=== PATIENT | male | born 1995 | race Caucasian/White ===

== ENCOUNTER 2016-06-23 23:07 | Emergency (ER) | payer SELFPAY ==
[~2016-06-23] VITALS: Ht 172.7 cm; Wt 64.5 kg
[~2016-06-23 23:07] MED LIST: ACET325T33 PO; IBUP800T25 PO
[2016-06-23 23:10] VITALS: Ht 172.7 cm; Wt 64.5 kg
--- NOTE | 2016-06-24 00:23 | ERD ---
ER Documentation Chief Complaint Date/Time DATE: 06/24/16 TIME: 00:20 Chief Complaint rashes/bumps around testicles, pelvic pain HPI 21 year old male comes in with bilateral scrotal swelling after intercourse. He states that he feels as if there is swelling to both of his scrotum only noted when he has had intercourse. No penile pain, no scrotal pain, no discharge. No dysuria, urgency or frequency. ROS All systems reviewed and are negative except as per history of present illness. Medications Home Meds Active Scripts Acetaminophen* (Tylenol*) 325 Mg Tablet, 2 TAB PO Q8 Y for PAIN AND OR ELEVATED TEMP, #20 TAB Prov:SHE SANTANA DO 12/25/15 Ibuprofen* (Motrin*) 800 Mg Tab, 800 MG PO Q6H Y for PAIN AND OR ELEVATED TEMP, #30 TAB Prov:SHE SANTANA DO 12/25/15 Allergies Allergies: Coded Allergies: No Known Allergy (Unverified , 06/23/16) Physical Exam Vitals Vital Signs Date Time Temp Pulse Resp B/P Pulse Ox O2 Delivery O2 Flow Rate FiO2 06/23/16 23:10 97.3 111 20 166/80 100 Physical Exam General: Well-developed, well-nourished. The patient appears in no acute distress. HEENT: Head is normocephalic, atraumatic. No scleral icterus. Neck: Supple. Nontender. Lungs: Clear to auscultation. Normal air movement. Heart: Regular rate and rhythm. S1 and S2 are normal. No murmurs, gallops, or rubs. Abdomen: Soft, nontender, nondistended. Bowel sounds are normoactive. Exam: Scrotum: Normal, no masses Hernia: None Testes/Epid: Non-tender w/ normal lie Cremaster: Reflex intact Lymph: No inguinal lymphadenopathy Discharge: None Extremities: No clubbing or cyanosis. Normal pulses. Moving extremities x 4. No weakness. Neurologic: Alert and oriented 3. No focal deficits. Skin: Normal turgor. No rash or lesions. Results 24 hrs PROCEDURE: ULTRASOUND TESTICULAR CLINICAL INDICATION: 21-year-old male with testicular swelling. TECHNIQUE: Multiple sonographic images of the scrotal region were obtained utilizing a linear array transducer with grayscale and color-flow and a Doppler imaging. The images were reviewed on a high-resolution PACS workstation. COMPARISON: None. FINDINGS: The right testicle is well visualized and has a normal echotexture. No focal areas of abnormal echogenicity are visualized. The right testicle measures 4.3 x 2.1 x 2 point a cm. There is normal color-flow. The right epididymis is visualized and measures approximately measures 14 via a mm. There is normal color-flow. The left testicle is well visualized and has a normal echotexture. No focal areas abnormal echogenicity are visualized. The left testicle measures 4.1 x 2.2 x 2.6 cm. There is normal color-flow. The left epididymis is visualized and measures approximately measures 14 x 9 mm. There is normal color-flow. IMPRESSION: No sonographic evidence for testicular torsion. .Demetrio Paris MD, Date Time Electronically viewed and signed by .Demetrio Paris MD, on 06/24/2016 01:31 .M/ Procedures/MDM 21-year-old male has had scrotal swelling according to the patient after intercourse. There is no evidence of any masses, torsion, infection, abscess, cellulitis. Departure Diagnosis: Primary Impression: Scrotal pain Condition: ANKIT Anthony PA-C Jun 24, 2016 00:23
--- NOTE | 2016-06-24 01:32 | RADRPT ---
PROCEDURE: ULTRASOUND TESTICULAR CLINICAL INDICATION: 21-year-old male with testicular swelling. TECHNIQUE: Multiple sonographic images of the scrotal region were obtained utilizing a linear arra y transducer with grayscale and color-flow and a Doppler imaging. The images were reviewed on a high -resolution PACS workstation. COMPARISON: None. FINDINGS: The right testicle is well visualized and has a normal echotexture. No focal areas of abnormal echog enicity are visualized. The right testicle measures 4.3 x 2.1 x 2 point a cm. There is normal color- flow. The right epididymis is visualized and measures approximately measures 14 via a mm. There is n ormal color-flow. The left testicle is well visualized and has a normal echotexture. No focal areas abnormal echogenic ity are visualized. The left testicle measures 4.1 x 2.2 x 2.6 cm. There is normal color-flow. The l eft epididymis is visualized and measures approximately measures 14 x 9 mm. There is normal color-fl ow. IMPRESSION: No sonographic evidence for testicular torsion. .Demetrio Paris MD, MD Date Time Electronically viewed and signed by .Demetrio Paris MD, MD on 06/24/2016 01:31 .M/
== END 2016-06-24 02:00 | disposition home or self-care (01) ==
LOC: FTE 23:07
DX: N50.82 Scrotal pain (principal)
CPT/HCPCS: 76870

== ENCOUNTER 2016-10-04 03:04 | Emergency (ER) | payer SELFPAY ==
[~2016-10-04] VITALS: Ht 175.3 cm; Wt 86.0 kg
[2016-10-04 03:09] VITALS: Ht 175.3 cm; Wt 86.0 kg
[2016-10-04] MEDS ORDERED: LIDOCAINE 1% (MDV) 20 ML INJ INJ STA (03:26)
[2016-10-04] MEDS ORDERED: STERILE WATER 1L IRRIG BTL IRR STA (03:26)
--- NOTE | 2016-10-04 03:26 | ERD ---
ER Documentation Chief Complaint Date/Time DATE: 10/04/16 TIME: 03:24 Chief Complaint left hand laceration from an iron fence x 30 minutes ago HPI 21-year-old male presents with chief complaint of left dorsal hand laceration that occurred 1.5 hours prior to arrival to ER. States that he was climbing an iron fence when his hand hit the tip of a short piece of metal fencing. Denies loss of range of motion and numbness. He currently rates his pain a 5 out of 10 in severity. Does not recall his last tetanus vaccine. ROS All systems reviewed and are negative except as per history of present illness. Medications Home Meds Active Scripts Acetaminophen* (Tylenol*) 325 Mg Tablet, 2 TAB PO Q8 Y for PAIN AND OR ELEVATED TEMP, #20 TAB Prov:SHE SANTANA DO 12/25/15 Ibuprofen* (Motrin*) 800 Mg Tab, 800 MG PO Q6H Y for PAIN AND OR ELEVATED TEMP, #30 TAB Prov:SHE SANTANA DO 12/25/15 Allergies Allergies: Coded Allergies: No Known Allergy (Unverified , 10/04/16) PMhx/Soc History of Surgery: No Anesthesia Reaction: No Hx Neurological Disorder: No Hx Respiratory Disorders: No Hx Cardiac Disorders: No Hx Psychiatric Problems: No Hx Miscellaneous Medical Probl: No Hx Alcohol Use: No Hx Substance Use: Yes (marijuana) Hx Tobacco Use: No Physical Exam Vitals Vital Signs Date Time Temp Pulse Resp B/P Pulse Ox O2 Delivery O2 Flow Rate FiO2 10/04/16 03:09 98.2 107 20 132/69 100 Physical Exam GENERAL: Non-toxic. No apparent signs of distress. LUNGS: Clear to auscultation. No accessory muscle use. No wheezing, no crackles. No signs or symptoms of respiratory distress. HEART: Regular rate and rhythm. No murmurs, clicks, rubs or gallops. EXTREMITIES: No peripheral cyanosis or edema. Full range of motion. Good capillary refill. 3 cm laceration on dorsal left hand, over head of fifth metacarpal with active bleeding. No surrounding ecchymosis or edema. Full range of motion in hand and fingers. 2+ radial pulse. NEURO: The patient moves all 4 extremities with 5/5 strength. Cranial nerves are grossly intact. Normal mental status for age. Good muscle tone. SKIN: There is no apparent rash, petechiae, erythema or swelling. Good skin turgor. 3 cm laceration on dorsal left hand, over head of fifth metacarpal with active bleeding. No surrounding ecchymosis or edema. Results 24 hrs Current Medications Medications (Trade) Dose Ordered Sig/Pasquale Route PRN Reason Start Time Stop Time Status Last Admin Dose Admin Diphtheria/ Tetanus/Acell Pertussis (Adacel) 0.5 ml ONCE ONCE IM 10/04/16 03:30 10/04/16 03:31 DC 10/04/16 03:44 Sterile Water (Water Sterile For Irrigation) 1,000 ml ONCE STAT IRR 10/04/16 03:26 10/04/16 03:27 DC 10/04/16 02:00 Lidocaine (Xylocaine 1% (Mdv) 20 ml) 20 ml ONCE STAT INJ 10/04/16 03:26 10/04/16 03:28 DC Lidocaine/ Epinephrine (Xylocaine 1%/ Epi) 30 ml ONCE STAT INJ 10/04/16 03:59 10/04/16 04:08 DC Silver Nitrate (Silver Nitrate Swabs) 5 stick ONCE ONCE TOP 10/04/16 04:00 10/04/16 04:03 DC Lidocaine/ Epinephrine (Xylocaine 2%/ Epi (Mdv) 20 ml) 20 ml ONCE ONCE INJ 10/04/16 04:30 10/04/16 04:31 DC Procedures/MDM Patient presents with laceration of her left dorsal hand after climbing a fence 1.5 hours prior to arrival, states that sharp metal fencing hit his hand he has been bleeding since. He appears to be in no acute distress, rates his pain a 5 out of 10 in severity. Has not taken any pain medications. On exam full range of motion in hand and fingers are intact. He has good capillary refill. 2+ radial pulse. I spent to the patient the suture closure would be necessary. Patient agrees to this plan. Laceration Repair by me: Anesthesia: 2% lidocaine with epi Location: Left dorsal hand, over head of fifth minute carpal Tendon/Joint/Nerves: No injury Foreign body: None detected after copious irrigation and exploration Technique: Simple Interrupted Sutures, 5 sutures placed Complexity: No subcutaneous sutures/mucosal repair/ edge excision Post Closure Length: 3 cm Patient's bleeding was easily controlled in the department after use of silver nitrate stick and heavy pressure and there is no indication of anemia. No evidence of compartment syndrome, neurologic injury, vascular injury, open joint, tendon laceration, or foreign body. Patient is appropriate for outpatient follow up. I spent to the patient that while I do not always prescribe antibiotics for her lacerations, due to location and depth of laceration I'll be prescribing prophylactic antibiotics. Patient has no allergies, I will be prescribing Keflex. I feel this is warranted due to contaminated fencing being mechanism of injury and due to the fact that the injury is on the hand at higher risk of infection. 48 hour wound check. Scar minimization instructions given. Departure Diagnosis: Primary Impression: Laceration of left hand Encounter type: initial encounter Foreign body presence: without foreign body Qualified Code: S61.412A - Laceration of left hand without foreign body, initial encounter Condition: Good Tesha Roa PA-C October 04, 2016 03:25
[2016-10-04] MEDS ORDERED: DIPHTH/TET/ACEL PERTUSS (ADULT) 0.5 ML VIAL IM ONE (03:30)
[2016-10-04] MEDS ORDERED: LIDOCAINE 1%/EPI 30 ML INJ INJ STA (03:59)
[2016-10-04] MEDS ORDERED: SILVER NITRATE SWAB TOP ONE (04:00)
[2016-10-04] MEDS ORDERED: LIDOCAINE 2%/EPI (MDV) 20ML INJ INJ ONE (04:30)
[2016-10-04] MEDS ORDERED: IBUP-1542 PO (04:42)
[2016-10-04] MEDS ORDERED: CEPH-443 PO (04:42)
[2016-10-04] MEDS ORDERED: MUPI22OI2 TOP (04:44)
[2016-10-04 04:57] VITALS: BP 128/60; PULSE 100; RESP 16; TEMP 98.4
== END 2016-10-04 04:58 | disposition home or self-care (01) ==
LOC: FTE 03:04
DX: S61.412A Laceration without foreign body of left hand, initial encounter (principal); W22.8XXA Striking against or struck by other objects, initial encounter; Y92.9 Unspecified place or not applicable; Z23 Encounter for immunization
CPT/HCPCS: 90471; 90715

== ENCOUNTER 2016-10-18 19:39 | Emergency (ER) | payer SELFPAY ==
[~2016-10-18] VITALS: Ht 172.7 cm; Wt 85.9 kg
[~2016-10-18 19:39] MED LIST changes: +CEPH-443 PO; +IBUP-1542 PO; +MUPI22OI2 TOP
[2016-10-18 19:42] VITALS: Ht 172.7 cm; Wt 85.9 kg
[2016-10-18] MEDS ORDERED: CEPH-443 PO (19:45)
--- NOTE | 2016-10-18 19:52 | ERD ---
ER Documentation Chief Complaint Date/Time DATE: 10/18/16 TIME: 19:49 Chief Complaint SUTURE REMOVAL TO LEFT HAND HPI 21-year-old male presents to emergency department for a suture removal of the laceration wound in the dorsal aspect of the left hand. Patient had [address], patient denies any discharge coming from the area, patient denies any fever or chills. Patient denies any numbness or tingling. Patient has had the sutures for 14 days now. ROS All systems reviewed and are negative except as per history of present illness. Medications Home Meds Active Scripts Cephalexin* (Keflex*) 500 Mg Capsule, 500 MG PO QID for 5 Days, CAP Prov:STARR SIMPSON NP 10/18/16 Mupirocin* (Bactroban*) 2% -22 Gram Oint...g., 1 APPLIC TOP BID for 7 Days, EA Prov:Tesha Roa PA-C 10/04/16 Cephalexin* (Keflex*) 500 Mg Capsule, 500 MG PO QID for 5 Days, CAP Prov:Tesha Roa PA-C 10/04/16 Ibuprofen* (Motrin*) 600 Mg Tab, 600 MG PO Q6, #30 TAB Prov:Tesha Roa PA-C 10/04/16 Acetaminophen* (Tylenol*) 325 Mg Tablet, 2 TAB PO Q8 Y for PAIN AND OR ELEVATED TEMP, #20 TAB Prov:SHE SANTANA 12/25/15 Ibuprofen* (Motrin*) 800 Mg Tab, 800 MG PO Q6H Y for PAIN AND OR ELEVATED TEMP, #30 TAB Prov:SHE SANTANA 12/25/15 Allergies Allergies: Coded Allergies: No Known Allergy (Unverified , 10/18/16) PMhx/Soc Medical and Surgical Hx: pt denies Medical Hx, pt denies Surgical Hx History of Surgery: No Anesthesia Reaction: No Hx Neurological Disorder: No Hx Respiratory Disorders: No Hx Cardiac Disorders: No Hx Psychiatric Problems: No Hx Miscellaneous Medical Probl: No Hx Alcohol Use: No Hx Substance Use: Yes (marijuana) Hx Tobacco Use: No FmHx Family History: No coronary disease, No diabetes, No other Physical Exam Vitals Vital Signs Date Time Temp Pulse Resp B/P Pulse Ox O2 Delivery O2 Flow Rate FiO2 10/18/16 19:42 98.0 88 18 132/84 99 Physical Exam GENERAL: The patient is well developed and appropriate for usual state of health, in no apparent distress. CHEST: Clear to auscultation bilaterally. There are no rales, wheezes or rhonchi. HEART: Regular rate and rhythm. No murmurs, clicks, rubs or gallops. No S3 or S4. ABDOMEN: Soft, nontender and nondistended. Good bowel sounds. No rebound or guarding. No gross peritonitis. No gross organomegaly or masses. No Garcia sign or McBurney point tenderness. BACK: No midline or flank tenderness. EXTREMITIES: Equal pulses bilaterally. There is no peripheral clubbing, cyanosis or edema. No focal swelling or erythema. Full range of motion. Grossly neurovascularly intact. NEURO: Alert and oriented. Cranial nerves 2-12 intact. Motor strength in all 4 extremities with 5/5 strength. Sensation grossly intact. Normal speech and gait. SKIN: Noted in the dorsal aspect of the hand, a wound laceration , healing well , mild gaping of the wound noted, no discharge coming from the area, [address] There is no apparent rash or petechia. The skin is warm and dry. HEMATOLOGIC AND LYMPHATIC: There is no evidence of excessive bruising or lymphedema. No gross cervical, axillary, or inguinal lymphadenopathy. Procedures/MDM Medical decision procedure note: After patient's verbal consent, the wound was cleaned with alcohol swab, after cleaning the wound, the sutures were removed without any difficulty, there is still some mild gaping of the wound, this was approximated using Steri-Strips. Patient tolerated procedure well. No symptoms of any infection. Medical decision making: Patient's wound is healing well, no symptoms of any infection, mild gaping is noted, approximated using Steri-Strips. No symptoms of neurovascular compromise noted. Patient was given for Keflex to prevent infection since patient's sutures were there for 14 days and there still mild gaping noted. Patient was advised to return to emergency department for any worsening symptoms. Follow-up with primary care doctor in 3-5 days for reevaluation of symptoms. Disposition: Home. Stable. Departure Diagnosis: Primary Impression: Encounter for removal of sutures Condition: Stable Patient Instructions: Suture Removal, No Complication STARR SIMPSON NP October 18, 2016 19:52
== END 2016-10-18 19:49 | disposition home or self-care (01) ==
LOC: E/R 19:39
DX: Z48.02 Encounter for removal of sutures (principal)
CPT/HCPCS: 99283

== ENCOUNTER 2017-08-30 20:02 | Emergency (ER) | END 2017-08-31 00:47 | disposition home or self-care (01) ==